=== PATIENT | female | born 1960 | race Caucasian/White ===

== ENCOUNTER 2019-05-09 17:59 | Emergency (ER) | payer OTHER ==
[~2019-05-09] VITALS: Ht 170.2 cm; Wt 78.9 kg
[~2019-05-09 17:59] MED LIST: AVALIDE 150/12.1 TAB; CARDIZEM CD360 MG; NEURONTIN600 MG; SYNTHROID75 MCG
[2019-05-09] MEDS ORDERED: PLAVIX75 MG (18:53)
== END 2019-05-09 21:28 | disposition home or self-care (01) ==
LOC: ER 17:59
DX: N39.0 Urinary tract infection, site not specified (principal)

== ENCOUNTER 2020-12-16 14:11 | Emergency (ER) | payer OTHER ==
[~2020-12-16] VITALS: Ht 165.1 cm; Wt 70.3 kg
[~2020-12-16 14:11] MED LIST changes: +PLAVIX75 MG
[2020-12-16] MEDS ORDERED: PERCOCET 10-321 EACH PO (18:43)
[2020-12-16] MEDS ORDERED: TAMS0.4C PO (18:43)
== END 2020-12-16 20:09 | disposition home or self-care (01) ==
LOC: ER 14:11
DX: N20.1 Calculus of ureter (principal); N20.0 Calculus of kidney; K59.09 Other constipation

== ENCOUNTER 2021-04-30 15:28 | Emergency (ER) | payer OTHER ==
[~2021-04-30] VITALS: Ht 170.2 cm; Wt 81.6 kg
[~2021-04-30 15:28] MED LIST changes: +PERCOCET 10-321 EACH PO; +TAMS0.4C PO
== END 2021-04-30 19:49 | disposition home or self-care (01) ==
LOC: ER 15:28
DX: M54.5 Low back pain (principal)

== ENCOUNTER 2021-10-30 08:00 | Outpatient (CLI) | payer OTHER | END 2021-10-30 08:30 | disposition home or self-care (01) | LOC: PPH VACUNA 08:00 | PROVIDERS: ATTEND Emergency Medicine Pediatric Emergency Medicine | DX: Z23 Encounter for immunization (principal) ==

== ENCOUNTER 2022-08-02 16:22 | Emergency (ER) | payer OTHER ==
[~2022-08-02] VITALS: Ht 170.2 cm; Wt 71.2 kg
[2022-08-02] MEDS ORDERED: CRESTOR5 MG PO (16:44)
[2022-08-02] MEDS ORDERED: GABAPENTIN800 M1 PO (16:49)
[2022-08-02] MEDS ORDERED: DILTIAZEM ER360 MG PO (16:49)
[2022-08-02] MEDS ORDERED: SYNTHROID100 MCG PO (16:49)
[2022-08-02] MEDS ORDERED: CETIRIZINE HCL10 MG PO (16:50)
[2022-08-02] MEDS ORDERED: PROAIR HFA8.5 GM IH (21:20)
[2022-08-02] MEDS ORDERED: ZITHROMAX500 MG PO (21:20)
[2022-08-02] MEDS ORDERED: TUSSIN100 MG/51 PO (21:20)
[2022-08-02] MEDS ORDERED: MEDROLPACK PO (21:20)
== END 2022-08-02 21:27 | disposition home or self-care (01) ==
LOC: ER 16:22
DX: U07.1 COVID-19 (principal); R07.9 Chest pain, unspecified; Z88.0 Allergy status to penicillin; Z88.2 Allergy status to sulfonamides; Z88.5 Allergy status to narcotic agent

== ENCOUNTER 2023-06-25 21:07 | Emergency (ER) | payer OTHER ==
[~2023-06-25] VITALS: Ht 170.2 cm; Wt 75.7 kg
[~2023-06-25 21:07] MED LIST changes: +CETIRIZINE HCL10 MG PO; +CRESTOR5 MG PO; +DILTIAZEM ER360 MG PO; +GABAPENTIN800 M1 PO; +MEDROLPACK PO; +PROAIR HFA8.5 GM IH; +SYNTHROID100 MCG PO; +TUSSIN100 MG/51 PO; +ZITHROMAX500 MG PO
[2023-06-25] MEDS ORDERED: IRBESARTAN-HCT1 EACH PO (22:07)
[2023-06-25] MEDS ORDERED: CLOPIDOGREL BIS75 MG PO (22:07)
[2023-06-25] MEDS ORDERED: ROSUVASTATIN CAL5 MG PO (22:08)
[2023-06-26] MEDS ORDERED: NORFLEX100MG PO ×2 (01:17→01:20)
[2023-06-26] MEDS ORDERED: KETO10TA2 PO (01:17)
[2023-06-26] MEDS ORDERED: DOLOGESIC-DF 51 EACH PO ×2 (01:19→01:20)
== END 2023-06-26 01:30 ==
LOC: ER 21:07
DX: S13.4XXA Sprain of ligaments of cervical spine, initial encounter (principal); V43.52XA Car driver injured in collision with other type car in traffic accident, initial encounter; Y93.89 Activity, other specified; Y92.413 State road as the place of occurrence of the external cause; Z88.0 Allergy status to penicillin; Z88.2 Allergy status to sulfonamides; Z91.041 Radiographic dye allergy status